=== PATIENT | female | born 1950 | race Caucasian/White ===

== ENCOUNTER → 2024-01-17 15:07 | Outpatient (REF) | payer MEDICARE, OTHER, SELFPAY | LOC: RAD 15:07 | PROVIDERS: ATTENDING PHYSICIAN Nurse Practitioner Family | DX: R05.2 Subacute cough (principal); Z86.16 Personal history of COVID-19 | CPT/HCPCS: 71046 ==

== ENCOUNTER → 2024-05-14 12:51 | Outpatient (REF) | payer MEDICARE, OTHER, SELFPAY | LOC: WDC 12:51 | PROVIDERS: ATTENDING PHYSICIAN Family Medicine | DX: Z12.31 Encounter for screening mammogram for malignant neoplasm of breast (principal) | CPT/HCPCS: 77063; 77067 ==

== ENCOUNTER → 2024-07-09 14:20 | Outpatient (REF) | payer MEDICARE, OTHER, SELFPAY | LOC: RAD 14:20 | PROVIDERS: ATTENDING PHYSICIAN Dermatology; FAMILY PHYSICIAN Family Medicine | DX: Z85.820 Personal history of malignant melanoma of skin (principal) | CPT/HCPCS: 71046 ==

== ENCOUNTER 2024-08-15 10:34 | Outpatient (RCR) | payer MEDICARE, OTHER, SELFPAY ==
[2024-08-15] MEDS: INJECTAFER 265 MG IV (11:19)
[2024-08-15 11:30] VITALS: BP 126/77
== END 2024-08-16 08:16 | disposition home or self-care (01) ==
LOC: OID 10:34
PROVIDERS: ATTENDING PHYSICIAN Internal Medicine; FAMILY PHYSICIAN Family Medicine
DX: D50.8 Other iron deficiency anemias (principal); R19.5 Other fecal abnormalities
CPT/HCPCS: 96365; J1439

== ENCOUNTER 2024-08-21 06:26 | Day surgery (SDC) | payer MEDICARE, OTHER, SELFPAY | END 2024-08-21 14:15 | disposition home or self-care (01) | LOC: GI 06:26 | PROVIDERS: ATTENDING PHYSICIAN Internal Medicine | DX: Z12.11 Encounter for screening for malignant neoplasm of colon (principal); D50.9 Iron deficiency anemia, unspecified; K64.9 Unspecified hemorrhoids; K62.89 Other specified diseases of anus and rectum; K44.9 Diaphragmatic hernia without obstruction or gangrene; K25.9 Gastric ulcer, unspecified as acute or chronic, without hemorrhage or perforation; K57.10 Diverticulosis of small intestine without perforation or abscess without bleeding; K31.89 Other diseases of stomach and duodenum; D12.3 Benign neoplasm of transverse colon; K29.50 Unspecified chronic gastritis without bleeding; K62.1 Rectal polyp; Z86.0101 Personal history of adenomatous and serrated colon polyps | CPT/HCPCS: 45385; 45380; 43239; 88305; 88342 ==

== ENCOUNTER 2024-08-26 08:20 | Outpatient (RCR) | payer MEDICARE, OTHER, SELFPAY ==
[2024-08-26 10:12] VITALS: BP 125/73
[2024-08-26] MEDS: INJECTAFER 265 MG IV (10:22)
[2024-08-26 10:59] VITALS: BP 126/70
== END 2024-08-27 10:11 | disposition home or self-care (01) ==
LOC: OID 08:20
PROVIDERS: ATTENDING PHYSICIAN Internal Medicine; FAMILY PHYSICIAN Family Medicine
DX: D50.8 Other iron deficiency anemias (principal); R19.5 Other fecal abnormalities; D64.9 Anemia, unspecified; Z86.0101 Personal history of adenomatous and serrated colon polyps
CPT/HCPCS: 96365; J1439

== ENCOUNTER → 2025-05-19 08:00 | Outpatient (REF) | payer MEDICARE, OTHER, SELFPAY | LOC: WDC 08:00 | PROVIDERS: ATTENDING PHYSICIAN Family Medicine | DX: Z12.31 Encounter for screening mammogram for malignant neoplasm of breast (principal) | CPT/HCPCS: 77063; 77067 ==

== ENCOUNTER → 2025-07-11 08:39 | Outpatient (REF) | payer MEDICARE, OTHER, SELFPAY | LOC: PAVMRI 08:39 | PROVIDERS: ATTENDING PHYSICIAN Orthopaedic Surgery; FAMILY PHYSICIAN Family Medicine | DX: M25.551 Pain in right hip (principal) | CPT/HCPCS: 73721 ==